=== PATIENT | male | born 1990 | race American Indian/Alaskan Native ===

== ENCOUNTER 2016-11-18 10:36 | Emergency (ER) | payer SELFPAY ==
[2016-11-18 10:51] VITALS: BP 114/75
[2016-11-18] MEDS ORDERED: XYLOCAINE 2%/ EPI 1:200,000 INFILTRATI ONE (11:28)
[2016-11-18] MEDS ORDERED: BOOSTRIX IM ONE (11:51)
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
== END 2016-11-18 12:41 | disposition home or self-care (01) ==
LOC: ED 10:36
DX: S41.112A Laceration without foreign body of left upper arm, initial encounter (principal); F12.10 Cannabis abuse, uncomplicated; W26.0XXA Contact with knife, initial encounter; Y93.89 Activity, other specified; Y92.89 Other specified places as the place of occurrence of the external cause; Y99.8 Other external cause status
CPT/HCPCS: 90471; 90715; 99282